=== PATIENT | female | born 1980 | race African-American/Black ===

== ENCOUNTER 2023-06-16 16:05 | Emergency (ER) | payer OTHER ==
[~2023-06-16] VITALS: Ht 165.1 cm; Wt 73.0 kg
[2023-06-16 16:08] VITALS: BP 132/74; PULSE 83; RESP 16; TEMP 98.5; O2SAT 99
[2023-06-16] MEDS ORDERED: KETOROLAC 30MG/ML VIAL IV STA (16:26)
[2023-06-16] MEDS ORDERED: SODIUM CHLORIDE 0.9% 1,000 ML IV ONE (16:30)
== END 2023-06-16 19:37 ==
LOC: ER 16:05
DX: D57.00 Hb-SS disease with crisis, unspecified (principal); M79.604 Pain in right leg; M79.605 Pain in left leg
CPT/HCPCS: 99283; J7030